=== PATIENT | female | born 1945 | race Caucasian/White ===

== ENCOUNTER 2018-05-20 07:30 | Inpatient (IN) | payer OTHER ==
[~2018-05-20] VITALS: Ht 160 cm; Wt 72.6 kg
[2018-06-08] MEDS ORDERED: INTESTINEX680 M1 PO (11:15)
[2018-06-08] MEDS ORDERED: SEROQUEL XR300 MG PO (11:16)
[2018-06-08] MEDS ORDERED: PEPCID20 MG PO (11:16)
[2018-06-08] MEDS ORDERED: NAMENDA10 MG PO (11:16)
[2018-06-08] MEDS ORDERED: LISINOPRIL20 MG PO (11:16)
[2018-06-08] MEDS ORDERED: NORVASC5 MG PO (11:17)
[2018-06-08] MEDS ORDERED: DIVALPROEX SOD500 MG PO (11:19)
[2018-06-09] MEDS ORDERED: PERCOCET 5-3251 EACH PO (17:37)
[2018-06-09] MEDS ORDERED: DUI500 PO (17:37)
[2018-06-09] MEDS ORDERED: ELIQUIS2.5 MG PO (17:37)
== END 2018-06-09 19:00 | DRG 470 ==
LOC: SURG 05-31 06:15 → O/R 05-31 06:15 → SURG 05-31 07:30 → SURH 06-07 06:12 → O/R 06-07 06:12 → SURH 06-07 14:18
PROVIDERS: Orthopaedic Surgery
PROC: 0MNN0ZZ Release Right Knee Bursa and Ligament, Open Approach (ICD-10-PCS; 2018-06-07)
PROC: 0SRC0J9 Replacement of Right Knee Joint with Synthetic Substitute, Cemented, Open Approach (ICD-10-PCS; principal; 2018-06-07 18:45)
DX: M17.11 Unilateral primary osteoarthritis, right knee (principal); D62 Acute posthemorrhagic anemia; M81.0 Age-related osteoporosis without current pathological fracture; E66.8 Other obesity; I10 Essential (primary) hypertension; F32.89 Other specified depressive episodes; G30.1 Alzheimer's disease with late onset; F02.80 Dementia in other diseases classified elsewhere, unspecified severity, without behavioral disturbance, psychotic disturbance, mood disturbance, and anxiety

== ENCOUNTER 2018-06-03 08:44 | Outpatient (CLI) | payer OTHER | END 2018-06-03 08:46 | disposition home or self-care (01) | LOC: LAB 08:44 | DX: N39.0 Urinary tract infection, site not specified (principal) ==

== ENCOUNTER 2019-04-12 02:08 | Emergency (ER) | payer OTHER ==
[~2019-04-12] VITALS: Ht 160 cm; Wt 75.7 kg
[~2019-04-12 02:08] MED LIST: DIVALPROEX SOD500 MG PO; DUI500 PO; ELIQUIS2.5 MG PO; INTESTINEX680 M1 PO; LISINOPRIL20 MG PO; NAMENDA10 MG PO; NORVASC5 MG PO; PEPCID20 MG PO; PERCOCET 5-3251 EACH PO; SEROQUEL XR300 MG PO
[2019-04-12] MEDS ORDERED: TOPROL XL50 M1 PO (09:31)
== END 2019-04-12 09:46 | disposition home or self-care (01) ==
LOC: ER 02:08 → CPU-OBS 02:09 → ER 09:46
DX: I16.1 Hypertensive emergency (principal); I10 Essential (primary) hypertension; M94.0 Chondrocostal junction syndrome [Tietze]; R07.89 Other chest pain

== ENCOUNTER 2022-01-20 10:23 | Outpatient (CLI) | payer OTHER ==
[~2022-01-20 10:23] MED LIST changes: +TOPROL XL50 M1 PO
== END 2022-01-20 10:38 | disposition home or self-care (01) ==
LOC: MAMO-SONO 10:23
DX: N64.59 Other signs and symptoms in breast (principal)